=== PATIENT | male | born 1970 | race Caucasian/White ===

== ENCOUNTER 2024-04-30 13:11 | Day surgery (SDC) | payer BC, MEDICARE ==
[2024-04-25 14:11] VITALS: BMI 28.8
[~2024-04-30 13:11] MED LIST: LIDOCAINE 1% (10MG/ML) FOR IV START INTRADERMA PRN
[2024-04-30] MEDS: IV FLUID CONTINUATION 1,000 ML IV ONE (13:32)
[2024-04-30] MEDS: LACTATED RINGERS 1,000 ML IV SCH (13:37)
[2024-04-30] MEDS ORDERED: PROPOFOL 10 MG/ML 20 ML VIAL IV ONE (14:35)
--- NOTE | 2024-04-30 14:39 | P.GSHP ---
History of Present Illness H&P Date: 04/30/24 Chief Complaint: Screening colonoscopy This a 53-year-old male presents today for screening colonoscopy. Patient denies any significant GI complaints. Past Medical History Past Medical History: No Reported History History of Any Multi-Drug Resistant Organisms: None Reported Past Surgical History: Orthopedic Surgery Additional Past Surgical History / Comment(s): Surgery at age 14 for fractured left femur. Past Anesthesia/Blood Transfusion Reactions: No Reported Reaction Past Psychological History: No Psychological Hx Reported Smoking Status: Never smoker Past Alcohol Use History: Occasional Past Drug Use History: None Reported - Past Family History Mother Family Medical History: No Reported History Father Family Medical History: Cancer Additional Family Medical History / Comment(s): Throat cancer. Medications and Allergies Home Medications Medication Instructions Recorded Confirmed Type Aspirin [Adult Low Dose Aspirin EC] 81 mg PO DAILY 04/25/24 04/30/24 History Atorvastatin [Lipitor] 20 mg PO DAILY 04/25/24 04/30/24 History Finasteride 1 mg PO DAILY 04/25/24 04/30/24 History Multivitamin/Iron/Folic Acid 1 each PO DAILY 04/25/24 04/30/24 History [Centrum Complete Multivit Tab] [place]-3/Dha/Epa/Fish Oil [Fish Oil 1 each PO DAILY 04/25/24 04/30/24 History 1,000 mg Softgel] Allergies Allergy/AdvReac Type Severity Reaction Status Date / Time No Known Allergies Allergy Verified 04/30/24 13:28 Surgical - Exam Vital Signs Pulse Resp BP Pulse Ox 74 15 167/92 96 04/30/24 13:30 04/30/24 13:30 04/30/24 13:30 04/30/24 13:30 - General well developed, well nourished, no distress - Eyes PERRL - ENT normal pinna - Neck no masses - Respiratory normal expansion - Cardiovascular Rhythm: regular - Abdomen Abdomen: soft, non tender Assessment and Plan Assessment: Will perform screening colonoscopy
--- NOTE | 2024-04-30 14:54 | P.OP ---
Date of Procedure: 04/30/24 Preoperative Diagnosis: Screening colonoscopy Postoperative Diagnosis: Normal colon Procedure(s) Performed: Colonoscopy Anesthesia: MAC Surgeon: Octavio Boo Pathology: none sent Condition: stable Disposition: PACU Description of Procedure: PROCEDURE: The patient was placed on the endoscopy table in the lateral position. Digital rectal examination was performed which revealed no abnormalities. The prostate was symmetrical without nodules. Flexible colonoscope was then placed in the patient's anus and passed throughout the entire colon. The ileocecal valve was visualized. The cecum, ascending, transverse, descending and sigmoid colon were normal. The rectum was normal as well. There were no masses, polyps or diverticula noted in the entire colon. SUMMARY OF FINDINGS: Normal colonoscopy.
[2024-04-30 14:58] VITALS: PULSE 75; RESP 18
[2024-04-30 15:11] VITALS: BP 113/80
== END 2024-04-30 15:28 | disposition home or self-care (01) ==
LOC: ORWHC2ENDO 13:11
PROVIDERS: ATTEND Surgery
DX: Z12.11 Encounter for screening for malignant neoplasm of colon (principal); E78.5 Hyperlipidemia, unspecified; F10.90 Alcohol use, unspecified, uncomplicated; Z79.82 Long term (current) use of aspirin
CPT/HCPCS: 45378